=== PATIENT | female | born 1995 | race Caucasian/White ===

== ENCOUNTER 2019-07-02 21:22 | Emergency (ER) | payer BC, OTHER ==
[~2019-07-02] VITALS: Ht 154 cm; Wt 60.9 kg
[2019-07-02] MEDS ORDERED: KETOROLAC 30 MG/ML VIAL IVP ONE (21:45)
[2019-07-02] MEDS ORDERED: ONDANSETRON 4 MG/2 ML (SDV) Z0FRAN IVP ONE (21:45)
--- NOTE | 2019-07-02 21:46 | ED Headache ---
General Chief Complaint: Head/Cervical Problems Stated Complaint: HEADACHE Nursing Triage Note: PT COMPLAINING OF A MIGRAINE SINCE 1900 TONIGHT. PT HAS TAKEN ASPIRIN FOR PAIN Nursing Sepsis Screen: No Definite Risk History of Present Illness Date Seen by Provider: Jul 02, 2019 Time Seen by Provider: 21:41 Initial Comments 24 year-old female gradually developed frontal and then global headache today associated with nausea no vomiting she denies fall or injury she denies congestion cough sore throat earache she's had some minor headaches in the past but has never been diagnosed with migraines her mom however has extensive history of migraines I am told Allergies and Home Medications Allergies Coded Allergies: No Known Drug Allergies (Unverified , 07/02/19) Patient Home Medication List Home Medication List Reviewed: Yes Review of Systems Review of Systems Constitutional: No fever Eyes: Denies Blurred Vision Ears, Nose, Mouth, Throat: denies ear pain, denies throat pain Cardiovascular: no symptoms reported Gastrointestinal: No abdominal pain; nausea, vomiting Genitourinary: no symptoms reported LMP: Jun 17, 2019 Past Xeenwfm-Vjwnjp-Rtkkdx Hx Patient Social History Alcohol Use: Denies Use Recreational Drug Use: No 2nd Hand Smoke Exposure: No Recent Foreign Travel: No Contact w/Someone Who Travel: No Recent Infectious Disease Expo: No Recent Hopitalizations: No Physical Abuse: No Sexual Abuse: No Mistreated: No Fear: No Past Medical History Surgeries: No Respiratory: No Cardiac: No Neurological: No Genitourinary: No Gastrointestinal: No Musculoskeletal: No Endocrine: No HEENT: No Cancer: No Psychosocial: No Integumentary: No Blood Disorders: No Physical Exam Vital Signs Vital Signs - First Documented 07/02/19 21:33 Temp 36.0 Pulse 98 Resp 16 B/P (MAP) 160/110 (127) Pulse Ox 98 O2 Delivery Room Air Capillary Refill : Less Than 3 Seconds Height, Weight, BMI Height: '" Weight: lbs. oz. kg; 25.00 BMI Method: General Appearance: mild distress HEENT: PERRL/EOMI, TMs normal, pharynx normal Neck: supple Cardiovascular: regular rate, rhythm Respiratory: lungs clear, normal breath sounds Gastrointestinal: non tender, soft Crainal Nerves: normal hearing, normal speech, PERRL Progress/Results/Core Measures Results/Orders My Orders Orders - AMANDA ARROYO MD Iv Heplock-Insert (Order) (07/02/19 21:38) Ondansetron Injection (Zofran Injectio (07/02/19 21:45) Ketorolac Injection (Toradol Injection) (07/02/19 21:45) Urine Bedside (07/02/19 21:45) Ct Head Wo (07/02/19 21:50) Ed Iv/Invasive Line Start (07/02/19 21:57) Medications Given in ED Current Medications Medications Dose Ordered Sig/Rachna Route Start Time Stop Time Status Last Admin Dose Admin Ketorolac Tromethamine 30 mg ONCE ONCE IVP 07/02/19 21:45 07/02/19 21:46 DC 07/02/19 21:51 30 MG Ondansetron HCl 4 mg ONCE ONCE IVP 07/02/19 21:45 07/02/19 21:46 DC 07/02/19 21:51 4 MG Vital Signs/I&O 07/02/19 21:33 Temp 36.0 Pulse 98 Resp 16 B/P (MAP) 160/110 (127) Pulse Ox 98 O2 Delivery Room Air Blood Pressure Mean: 127 POS Diagnostic Imaging Diagonstic Imaging: CT (CT head - normal, no acute findings) Departure Impression Primary Impression: Migraine Qualified Codes: G43.909 - Migraine, unspecified, not intractable, without status migrainosus Disposition: 01 HOME, SELF-CARE Condition: Stable Departure-Patient Inst. Decision time for Depature: 22:23 Referrals: NO,LOCAL PHYSICIAN (PCP/Family) Primary Care Physician Patient Instructions: Migraine Headache (DC) Scripts Ondansetron (Ondansetron Odt) 4 Mg Tab.rapdis 4 MG PO Q6H for Nausea, #20 TAB Prov: AMANDA ARROYO MD 07/02/19 Codeine/Butalbital/ASA/Caffein (Fiorinal-Cod [id number] Cap) 1 Each Capsule 1 EACH PO QID for Headache, #20 CAP Prov: AMANDA ARROYO MD 07/02/19 AMANDA ARROYO MD Jul 02, 2019 21:46 POS
--- NOTE | 2019-07-02 22:14 | Diagnostic Imaging Report ---
PROCEDURE: CT head without contrast. TECHNIQUE: Multiple contiguous axial images were obtained through the brain without the use of intravenous contrast. Auto Exposure Controls were utilized during the CT exam to meet ALARA standards for radiation dose reduction. INDICATION: Altered mental status. COMPARISON: None. FINDINGS: The ventricles and cortical sulci are age-appropriate. There is no midline shift or mass-effect. No acute intracranial hemorrhage is seen. There is no CT evidence of acute territorial ischemia. No focal masses or collections are present. The calvarium is intact. The visualized paranasal sinuses are clear. IMPRESSION: No hemorrhage or focal intra-axial mass. No CT evidence of large acute territorial ischemia. Dictated by: Dictated on workstation # [id number]
[2019-07-02] MEDS ORDERED: CODE1CAP35 PO (22:25)
[2019-07-02] MEDS ORDERED: ONDA4TAB11 PO (22:25)
[2019-07-02 22:36] VITALS: BP 120/79
== END 2019-07-02 22:35 | disposition home or self-care (01) ==
LOC: ER FS 21:24
DX: G43.909 Migraine, unspecified, not intractable, without status migrainosus (principal)
CPT/HCPCS: 70450; 84703